=== PATIENT | female | born 1990 | race African-American/Black ===

== ENCOUNTER 2016-09-28 13:36 | Emergency (ER) | payer OTHER ==
[~2016-09-28] VITALS: Ht 165.1 cm; Wt 73.0 kg
[2016-09-28 13:52] VITALS: TEMP 37.1; Ht 165.1 cm; Wt 73.0 kg
--- NOTE | 2016-09-28 15:05 | DIAGNOSTIC IMAGING REPORT ---
CT SCAN OF THE FACIAL BONES WITHOUT IV CONTRAST CLINICAL HISTORY: Fall. Right facial pain. COMPARISON STUDY: No priors. TECHNIQUE: High-resolution CT scan of the facial bones is performed. Images are reviewed in the axial, sagittal, and coronal planes. IV contrast was not administered for this examination. CT DOSE: 533.14 mGycm FINDINGS: The skeletal structures are well mineralized. There is no evidence of facial bone fracture. The bony orbits are intact and the orbital contents are within normal limits. The zygomatic arches, nasal bones, and pterygoid plates are preserved. The maxilla and mandible are intact. There are no layering blood products within the paranasal sinuses. There is trace mucosal thickening within the maxillary antra. The remaining paranasal sinuses and mastoid air cells are clear. The visualized calvarium and upper cervical spine are maintained. Partially imaged brain parenchyma is within normal limits. IMPRESSION: There is no evidence of facial bone fracture. Electronically signed by: Trino Christianson M.D. 09/28/2016 3:04 PM Dictated Date/Time: 09/28/2016 2:50 PM
--- NOTE | 2016-09-28 15:08 | DIAGNOSTIC IMAGING REPORT ---
LEFT RIBS UNILATERAL WITH PA CHEST CLINICAL HISTORY: Left rib pain following fall. COMPARISON STUDY: No previous studies for comparison. FINDINGS: There is no pneumothorax or pleural effusion. Lungs are clear. Cardiac size is normal. Mediastinal contours are normal. No acute left rib fractures are identified on this exam. IMPRESSION: No pneumothorax. No acute left rib fractures identified. Electronically signed by: Cheo Yan M.D. 09/28/2016 3:07 PM Dictated Date/Time: 09/28/2016 3:04 PM
[2016-09-28] MEDS ORDERED: KETO10TA PO (15:32)
[2016-09-28 15:34] VITALS: BP 127/84; PULSE 87; O2SAT 98
--- NOTE | 2016-10-01 10:29 | EMERGENCY ROOM VISIT NOTE ---
ED Visit Note First contact with patient: 13:56 Chief Complaint: Rib and facial pain. History of Present Illness: Ms. Forrest is a 25-year-old black female who ambulates into the [facility] by her child complaining of right sided facial pain over the zygomatic arch and upper mandible area and left sided rib pain. Patient reports 2 days ago she slipped while walking through ice and then fell down 5 steps. She reports at the time of the injury she does not remember striking her head and she did not have loss of consciousness. She does report immediately after the fall she had right sided tinnitus that lasted for a few minutes and then resolved and then approximately one hour after the fall she was nauseated but did not vomit. Since the fall she reports she has been having intermittent dizziness, right- sided facial pain and left sided rib pain. She reports the dizziness occurs when she moves from the sitting to the standing position and last for a few seconds and resolves. Her right sided facial pain is over the posterior aspect of the zygomatic arch and over the superior aspect of the mandibular ramus. She describes this pain as a sharp sensation. She rates her discomfort 8/10. Her pain is nonradiating. Her pain worsens with palpation and chilling and minimally with opening her mouth. She has not identified any alleviating factors related to the pain. She has not taken any medications for pain prior to arrival at the hospital. Additionally she complains of left sided rib pain over the areas of ribs 4, 5 and 6 over the mid axillary line. Once again she describes this as a sharp pain and rates her discomfort 8/10. Her pain is nonradiating. Her pain worsens with deep inspiration and palpation. She has not identified any alleviating factors related to the pain and she has not taken any medications for pain prior to arrival at the hospital. She denies headache, abnormal neurological symptoms, neck pain, back pain, shortness of breath, cough, wheezing, difficulty breathing, chest pain, abdominal pain, nausea, vomiting, difficulty swallowing, voice changes, hearing changes, ear drainage. Review of Systems: As noted above in history of present illness. 8 body systems were reviewed and found to be negative as noted above. Past Medical History: Patient denies. Current Medications: Patient denies. Allergies to Medications: Tramadol. Social History: Patient is not currently employed; she feels safe in her home environment; she denies tobacco use. Physical Examination: Vital Signs: Date Time Temp Pulse Resp B/P Pulse Ox O2 Delivery O2 Flow Rate FiO2 09/28/16 15:34 87 16 127/84 98 Room Air 09/28/16 13:52 37.1 93 16 102/63 98 GENERAL: 25-year-old female in mild distress due to pain, nontoxic-appearing, afebrile and hemodynamically stable. NEUROLOGICAL: Awake, alert and oriented to person, place and time. Answering questions appropriately and following commands. Normal gait. Good hand eye coordination. No focal motor sensory deficits. Romberg test negative. Pronator drift test negative. Cranial nerves II through XII grossly intact. Short-term and long-term recall. Normal rapid alternating movements of the hands and fingers. Normal heel locke test. Able to spell and Backwards. SKIN: Warm, dry and pink. No soft tissue eruptions or trauma noted. HEENT: Atraumatic and normocephalic. Skull: No bony deformity, crepitus or swelling. No raccoon's eyes or alaniz signs. No drainage from ears or nares; no hemotympanum. Face: Tenderness over the posterior aspect of the right zygomatic arch and over the superior and posterior border of the mandibular ramus without bony deformity or crepitus. He is also no swelling or ecchymosis in this area. PERRLA. EOMI without nystagmus. Sclera white and conjunctiva pink. No malocclusion. No intraoral trauma. Airway patent. Speech is clear and normal. Trachea midline. No jugular venous distention. BACK: No tenderness over the bony cervical and thoracic spine. THORAX: Lungs sounds are clear to auscultation and equal bilaterally with symmetrical chest wall. No wheezing, rales or rhonchi. Moderate tenderness over the left lateral ribs without bony deformity, bony crepitus, swelling, ecchymosis or subcutaneous air. No increased respiratory effort or rate. HEART: Regular rate and rhythm. No gallops, rubs or murmurs are appreciated. ABDOMEN: Flat, soft and nontender. Positive bowel sounds in all quadrants. No guarding, rigidity or organomegaly. EXTREMITIES: Moves all extremities well on command and with purpose. All distal neurovascular statuses are intact and equal bilaterally. ED Course: Patient is assessed as noted above. Facial CT: Were read by myself and the radiologist showing no acute fractures. PA Chest with Left Rib X-Rays: Were read by myself and shows no acute infiltrates, effusions or pneumothorax. Normal heart silhouette. No rib fractures noted. Patient was offered pain medications and refused. Patient was educated about tonight's findings and instructed on her treatment plan; she verbalizes understanding and agreement with this plan. Clinical Impression: Right sided facial pain. Left sided rib pain. Status post fall. Disposition: Patient discharged home in stable condition accompanied by her child; prior to departure she was reassessed and subjectively reported she was feeling slightly better and rated her discomfort 5/10 Plan: Patient was prescribed Toradol and encouraged to alternate with ibuprofen every 3 hours as needed for pain. Patient was encouraged to use ice on areas of pain and/or bruising 4-5 times a day for 20-30 minutes. Patient was encouraged to follow-up with family physician for recheck if no better in 2-5 days. Patient was encouraged return ED for worsening/uncontrolled pain, uncontrolled bruising or swelling, shortness of breath, fevers, coughing up blood or any new/ concerning symptoms.
== END 2016-09-28 15:36 | disposition home or self-care (01) ==
LOC: C.EDB 13:41 → C.EDD 15:36
DX: R51 Headache (principal); R07.89 Other chest pain; W01.0XXA Fall on same level from slipping, tripping and stumbling without subsequent striking against object, initial encounter; Z88.8 Allergy status to other drugs, medicaments and biological substances